=== PATIENT | male | born 1970 | race Caucasian/White ===

== ENCOUNTER 2018-11-17 14:46 | Emergency (ER) | payer MEDICAID, OTHER ==
[2018-11-17] MEDS ORDERED: Lidocaine 1% with EPINEPHrine 1:100,000 50 ML MDV INFILT ONE (14:51)
--- NOTE | 2018-11-17 15:02 | EDM.PDOC ---
ED HPI GENERAL MEDICAL PROBLEM - General Chief Complaint: Laceration Stated Complaint: FELL AND HIT HEAD Time Seen by Provider: 11/17/18 15:00 Source of Information: Reports: Patient, Family History Limitations: Reports: No Limitations - History of Present Illness INITIAL COMMENTS - FREE TEXT/NARRATIVE: 48-year-old male fell off a ladder hurting his lower left leg and striking the front of his head on the corner of a brick sustaining a scalp laceration. He also has an abrasion and some lower leg pain on the left side but is able to ambulate. He is developing a worsening headache. Denies any neck pain, upper extremity pain, chest pain or abdominal pain. Onset: Sudden Duration: Hour(s): (Within the last hour) headache Pain Score (Numeric/FACES): 10 - Related Data Allergies Allergy/AdvReac Type Severity Reaction Status Date / Time No Known Allergies Allergy Verified 11/17/18 14:59 Home Meds: Home Meds Hydrocodone/Acetaminophen [Hydrocodon-Acetaminophn 10-325] 2 tab PO BID PRN 10/17 [History] Amitriptyline [Elavil] 50 mg PO BEDTIME 06/07/17 [History] Aspirin 325 mg PO DAILY 06/07/17 [History] Cyclobenzaprine [Flexeril] 10 mg PO TID PRN 06/07/17 [History] Docusate Sodium [Colace] 100 mg PO DAILY 06/07/17 [History] Insulin Glarg,Human.Rec.Analog [Lantus] 25 unit SUBCUT BEDTIME 06/07/17 [History ] Lisinopril 40 mg PO DAILY 06/07/17 [History] Metoprolol Tartrate [Lopressor] 100 mg PO BID 06/07/17 [History] Naproxen [Naprosyn] 500 mg PO BID 06/07/17 [History] Pregabalin [Lyrica] 100 mg PO TID 06/07/17 [History] Scopolamine [Transderm-Scop] 1 each TD ASDIRECTED 06/07/17 [History] Simvastatin [Zocor] 10 mg PO BEDTIME 06/07/17 [History] Triamcinolone Acetonide [Kenalog 0.1% Crm] 1 applic TOP BID 06/07/17 [History] amLODIPine [Norvasc] 10 mg PO DAILY 06/07/17 [History] glipiZIDE [Glucotrol] 5 mg PO BIDAC 06/07/17 [History] metFORMIN [Glucophage] 1,000 mg PO BIDMEALS 06/07/17 [History] ED ROS GENERAL - Review of Systems Review Of Systems: See Below Constitutional: Denies: Fever, Chills HEENT: Denies: Vision Change Respiratory: Denies: Shortness of Breath Cardiovascular: Denies: Chest Pain GI/Abdominal: Denies: Abdominal Pain, Nausea, Vomiting : Reports: No Symptoms Musculoskeletal: Reports: Leg Pain (Left lower pain, also left upper arm pain around the elbow.) Skin: Reports: Other (Laceration on the high forehead, abrasion on the left elbow and left lower leg) Neurological: Reports: Headache, Paresthesia (Chronic lower extremity paresthesias), Other (No loss of consciousness) Psychiatric: Reports: No Symptoms ED EXAM, SKIN/RASH Exam: See Below Exam Limited By: No Limitations General Appearance: Alert, No Apparent Distress Eye Exam: Bilateral Eye: Normal Inspection Head: Other (8 cm irregular laceration on the upper forehead extending to the hairline on the frontal scalp) Neck: Non-Tender Respiratory/Chest: No Respiratory Distress, Lungs Clear Cardiovascular: Regular Rate, Rhythm GI/Abdominal: Non-Tender Extremities: Other (Patient has a few superficial abrasion on the left lower leg with tenderness to palpation of the fibula but no deformity and able to bear weight. Also some tenderness to palpation over the medial malleolus and top of the foot.) Neurological: Alert, Oriented, No Motor/Sensory Deficits Skin: Other (Laceration on the scalp and abrasions as above) Course - Vital Signs Last Recorded V/S: Last Vital Signs Temp 98.2 F 11/17/18 15:08 Pulse 79 11/17/18 15:08 Resp 24 H 11/17/18 15:08 BP 178/92 H 11/17/18 15:08 Pulse Ox 94 L 11/17/18 15:08 - Orders/Labs/Meds Orders: Active Orders 24 hr Category Date Time Status Vaccines to be Administered [RC] PER UNIT ROUTINE Care 11/17/18 16:03 Active DME for Discharge [COMM] Stat Oth 11/17/18 17:44 Ordered DME for Discharge [COMM] Stat Oth 11/18/18 09:28 Ordered Meds: Medications Discontinued Medications Generic Name Dose Route Start Last Admin Trade Name Todd PRN Reason Stop Dose Admin Acetaminophen 1,000 mg 11/17/18 15:06 11/17/18 15:11 Tylenol Extra Strength PO 11/17/18 15:07 1,000 mg ONETIME ONE Administration Bacitracin 1 dose 11/17/18 16:18 11/17/18 16:28 Bacitracin Oint 1 Gm TOP 11/17/18 16:19 1 dose ONETIME ONE Administration Diphtheria/Tetanus/Acell Pertussis 0.5 ml 11/17/18 16:03 11/17/18 16:27 Adacel IM 11/17/18 16:04 0.5 ml .ONCE ONE Administration Lidocaine/Epinephrine 30 ml 11/17/18 14:51 11/17/18 15:10 Xylocaine 1% With Epinephrine 1:100,000 INFILT 11/17/18 14:52 30 ml ONETIME ONE Administration - Re-Assessments/Exams Free Text/Narrative Re-Assessment/Exam: 11/17/18 16:13 Pressure was applied to the wound and the patient had a CT of the head to rule out subdural or any other urgent abnormality needing treatment prior to repair of the laceration. This was negative. The laceration was then infiltrated with 1 % lidocaine with epinephrine, washed with saline, and closed first using 6 5-0 Vicryl sutures for subcutaneous closure, and then an 8 cm interlocking running suture to close the external laceration. A pressure dressing was applied, the patient was provided with a TD Booster and an x-ray of the left tib-fib obtained. 11/17/18 16:25 Tib-fib x-ray showed arthritic changes and possible distal medial malleolar fx. Patient has no significant pain over the medial area but neuropathy may be masking pain. A walking boot will be supplied until rechecked with orthopedics. Crutches will assist with ambulation. Topical bacitracin and a pressure dressing was applied to the scalp wound, sutures can be removed in 9 days. This would be Monday the . He can increase activity as tolerated. Continue current medications. Patient has previous physician relationship with Dr. Enciso, podiatry so I will have him see him this week in follow-up. Departure - Departure Time of Disposition: 16:58 Disposition: Home, Self-Care 01 Clinical Impression: Laceration of scalp Qualifiers: Encounter type: initial encounter Qualified Code(s): S01.01XA - Laceration without foreign body of scalp, initial encounter Leg abrasion Qualifiers: Encounter type: initial encounter Laterality: left Qualified Code(s): S80.812A - Abrasion, left lower leg, initial encounter Elbow abrasion Qualifiers: Encounter type: initial encounter Laterality: left Qualified Code(s): S50.312A - Abrasion of left elbow, initial encounter Fractured medial malleolus Qualifiers: Encounter type: initial encounter Fracture type: closed Fracture alignment: displaced Laterality: left Qualified Code(s): S82.52XA - Displaced fracture of medial malleolus of left tibia, initial encounter for closed fracture - Discharge Information Instructions: Laceration Care, Adult Referrals: PCP,None [Primary Care Provider] - Forms: ED Department Discharge Care Plan Goals: Keep wound covered and clean while healing. Increase diet and activity as tolerated. Keep other wounds clean as well. Return if concerns of infection or not healing satisfactorily, otherwise stitches can be removed in 9 days on November 26. Continue your regular medications. Wear walking boot and use crutches for ambulation until rechecked with podiatry Monday or Monday, call clinic for appointment. - My Orders Last 24 Hours: My Active Orders 11/17/18 16:03 Vaccines to be Administered [RC] PER UNIT ROUTINE 11/17/18 17:44 DME for Discharge [COMM] Stat 11/18/18 09:28 DME for Discharge [COMM] Stat - Assessment/Plan Last 24 Hours: My Active Orders 11/17/18 16:03 Vaccines to be Administered [RC] PER UNIT ROUTINE 11/17/18 17:44 DME for Discharge [COMM] Stat 11/18/18 09:28 DME for Discharge [COMM] Stat
[2018-11-17] MEDS ORDERED: Acetaminophen 500 MG Tab PO ONE (15:06)
--- NOTE | 2018-11-17 15:52 | CRLCT ---
INDICATION: Trauma to head after fall off ladder. Headache. TECHNIQUE: CT Head without contrast. COMPARISON: None FINDINGS: Ventricles and sulci are normal in size and configuration. No extra axial collection. No acute intracranial hemorrhage. No mass effect or edema. No CT evidence of acute, large territorial infarction. Calcification of the anterior falx. Visualized paranasal sinuses and mastoid air cells are well aerated. There is a small left frontal scalp laceration/hematoma. Calvarium is intact. IMPRESSION: 1. No acute intracranial hemorrhage or mass effect. 2. Small left frontal scalp laceration/hematoma. Dictated by Courtney Hale MD @ 11/17/2018 3:51:25 PM Please note that all CT scans at this facility use dose modulation, iterative reconstruction, and/or weight-based dosing when appropriate to reduce radiation dose to as low as reasonably achievable. Dictated by: Courtney Hale MD @ 11/17/2018 15:51:31 (Electronically Signed)
[2018-11-17] MEDS ORDERED: Diphtheria,Pertussis(Acell),Tetanus Vaccine 0.5 ML SDV IM ONE (16:03)
[2018-11-17] MEDS ORDERED: Bacitracin Oint 1 GM U/D Packet TOP ONE (16:18)
--- NOTE | 2018-11-17 16:34 | CRLCR ---
HISTORY: Trauma for fall from a ladder. COMPARISON: None. FINDINGS: Four views of the tibia and fibula. Acute nondisplaced fracture of the distal tibia at the ankle/medial malleolus. There is associated soft tissue swelling about the ankle. Dictated by Nessa Causey MD @ Nov 17 2018 4:30PM Signed by Dr. Nessa Causey @ Nov 17 2018 4:33PM
== END 2018-11-17 16:58 | disposition home or self-care (01) ==
LOC: JP.ED 14:46
DX: S82.52XA Displaced fracture of medial malleolus of left tibia, initial encounter for closed fracture (principal); S01.01XA Laceration without foreign body of scalp, initial encounter; S50.312A Abrasion of left elbow, initial encounter; Z23 Encounter for immunization; Z79.899 Other long term (current) drug therapy; Z79.82 Long term (current) use of aspirin; W11.XXXA Fall on and from ladder, initial encounter
CPT/HCPCS: 12034; 70450; 73590; 90471; 90715; 99283; A9270

== ENCOUNTER 2018-11-19 17:26 | Emergency (ER) | payer MEDICAID ==
--- NOTE | 2018-11-19 17:56 | EDM.PDOC ---
ED HPI GENERAL MEDICAL PROBLEM - General Chief Complaint: Eye Problems Stated Complaint: EYES SWELLING SHUT-FALL 11/17/18 Time Seen by Provider: 11/19/18 17:47 Source of Information: Reports: Patient, Family, Old Records, RN Notes Reviewed History Limitations: Reports: No Limitations - History of Present Illness INITIAL COMMENTS - FREE TEXT/NARRATIVE: 48-year-old gentleman presents emergency department today complaint of swelling around his eyes, he was recently involved in a trauma 2 days prior where he had fallen off a ladder with a head injury CT scan of the head shows no acute fracture or intracranial abnormality however he did have significant facial swelling and laceration. His biggest concern is that he has developed edema and ecchymosis around his eyes and he is concerned that this may be abnormal no difficulty with vision - Related Data Allergies Allergy/AdvReac Type Severity Reaction Status Date / Time No Known Allergies Allergy Verified 11/17/18 14:59 Home Meds: Home Meds Hydrocodone/Acetaminophen [Hydrocodon-Acetaminophn 10-325] 2 tab PO BID PRN 10/17 [History] Amitriptyline [Elavil] 50 mg PO BEDTIME 06/07/17 [History] Aspirin 325 mg PO DAILY 06/07/17 [History] Cyclobenzaprine [Flexeril] 10 mg PO TID PRN 06/07/17 [History] Docusate Sodium [Colace] 100 mg PO DAILY 06/07/17 [History] Insulin Glarg,Human.Rec.Analog [Lantus] 25 unit SUBCUT BEDTIME 06/07/17 [History ] Lisinopril 40 mg PO DAILY 06/07/17 [History] Metoprolol Tartrate [Lopressor] 100 mg PO BID 06/07/17 [History] Naproxen [Naprosyn] 500 mg PO BID 06/07/17 [History] Pregabalin [Lyrica] 100 mg PO TID 06/07/17 [History] Scopolamine [Transderm-Scop] 1 each TD ASDIRECTED 06/07/17 [History] Simvastatin [Zocor] 10 mg PO BEDTIME 06/07/17 [History] Triamcinolone Acetonide [Kenalog 0.1% Crm] 1 applic TOP BID 06/07/17 [History] amLODIPine [Norvasc] 10 mg PO DAILY 06/07/17 [History] glipiZIDE [Glucotrol] 5 mg PO BIDAC 06/07/17 [History] metFORMIN [Glucophage] 1,000 mg PO BIDMEALS 06/07/17 [History] Past Medical History Neurological History: Reports: Neuropathy, Diabetic Endocrine/Metabolic History: Reports: Diabetes, Type II - Infectious Disease History Infectious Disease History: Reports: Chicken Pox - Past Surgical History GI Surgical History: Reports: Appendectomy Social & Family History - Tobacco Use Smoking Status *Q: Never Smoker - Caffeine Use Caffeine Use: Reports: Coffee, Soda, Tea ED ROS GENERAL - Review of Systems Review Of Systems: See Below HEENT: Reports: No Symptoms Skin: Reports: Bruising, Other (Edema) Neurological: Reports: No Symptoms ED EXAM GENERAL W FULL EYE - Physical Exam Exam: See Below Exam Limited By: No Limitations General Appearance: Alert, WD/WN, No Apparent Distress Eye Exam: Bilateral Eye: EOMI, Normal Inspection, Periorbital Changes (Edema and bruising superior aspects of both orbits) Extraocular Movements: Bilateral: Intact Pupillary Size: Bilateral: 5 mm Head: Facial Swelling (Trina), Facial Tenderness Neck: Normal Inspection, Supple, Non-Tender, Full Range of Motion Course - Vital Signs Last Recorded V/S: Last Vital Signs Temp 96.4 F 11/19/18 17:42 Pulse 82 11/19/18 17:42 Resp 16 11/19/18 17:42 BP 202/107 H 11/19/18 17:42 Pulse Ox 96 11/19/18 17:42 Departure - Departure Time of Disposition: 18:04 Disposition: Home, Self-Care 01 Condition: Fair Clinical Impression: Traumatic periorbital ecchymosis Qualifiers: Encounter type: initial encounter Laterality: unspecified laterality Qualified Code(s): S05.10XA - Contusion of eyeball and orbital tissues, unspecified eye, initial encounter - Discharge Information Referrals: Dilan Lowry MD [Primary Care Provider] - Additional Instructions: Please keep your follow-up appointment with podiatry and primary care, call return to the emergency department worsening of symptoms - Assessment/Plan Plan: Assessment Acuity = acute Site and laterality = bilateral periorbital edema and bruising Etiology = secondary to trauma] Manifestations = none] Location of injury = Home Lab values = none] Plan [Mainly reassurance recommend using ice over the edematous areas and then help positioning with head for drainage of the fluid, he does have follow-up appointments with his primary care and podiatry this week This note was dictated using [employer] voice recognition software please call with any questions on syntax or grammar.
== END 2018-11-19 18:07 | disposition home or self-care (01) ==
LOC: JP.ED 17:26
DX: S00.83XA Contusion of other part of head, initial encounter (principal); E11.40 Type 2 diabetes mellitus with diabetic neuropathy, unspecified; Z79.82 Long term (current) use of aspirin; Z79.4 Long term (current) use of insulin; Z79.899 Other long term (current) drug therapy; W11.XXXA Fall on and from ladder, initial encounter
CPT/HCPCS: 99282

== ENCOUNTER 2020-06-04 16:41 | Emergency (ER) | payer MEDICAID ==
[2020-06-04] MEDS ORDERED: Sodium Chloride 0.9% 10 ML Syringe FLUSH PRN (17:12)
[2020-06-04] MEDS ORDERED: Ondansetron 4 MG/2 ML SDV IVPUSH ONE (17:13)
[2020-06-04] MEDS ORDERED: Lactated Ringers 1,000 ML IV SCH (17:15)
--- NOTE | 2020-06-04 17:17 | EDM.PDOC ---
ED HPI GENERAL MEDICAL PROBLEM - General Chief Complaint: Gastrointestinal Problem Stated Complaint: WEAK,NAUSEA, DIAHHREA Time Seen by Provider: 06/04/20 17:08 Source of Information: Reports: Patient, Provider, RN Notes Reviewed History Limitations: Reports: No Limitations - History of Present Illness INITIAL COMMENTS - FREE TEXT/NARRATIVE: 50-year-old gentleman presents to the emergency department sent from clinic I did discuss case with Dr. Lowry states he has been feeling ill for about a week or so did have some nausea and vomiting last week but that has progressed to diarrhea he has had fevers and chills at home feels nauseated received his first Covid vaccine about a month ago he is set to receive the second 1 in about a week he has been doing self-isolation no known exposures that he is aware of. - Related Data Allergies Allergy/AdvReac Type Severity Reaction Status Date / Time No Known Allergies Allergy Verified 06/04/20 16:58 Home Meds: Home Meds Hydrocodone/Acetaminophen [Hydrocodon-Acetaminophn 10-325] 2 tab PO BID PRN 12/11/13 [History] Amitriptyline [Elavil] 50 mg PO BEDTIME 06/07/17 [History] Aspirin 325 mg PO DAILY 06/07/17 [History] Docusate Sodium [Colace] 100 mg PO DAILY 06/07/17 [History] Metoprolol Tartrate [Lopressor] 100 mg PO BID 06/07/17 [History] Naproxen [Naprosyn] 500 mg PO BID 06/07/17 [History] Pregabalin [Lyrica] 100 mg PO TID 06/07/17 [History] Scopolamine [Transderm-Scop] 1 each TD ASDIRECTED 06/07/17 [History] Simvastatin [Zocor] 10 mg PO BEDTIME 06/07/17 [History] Triamcinolone Acetonide [Kenalog 0.1% Crm] 1 applic TOP BID 06/07/17 [History] amLODIPine [Norvasc] 10 mg PO DAILY 06/07/17 [History] glipiZIDE [Glucotrol] 5 mg PO BIDAC 06/07/17 [History] metFORMIN [Glucophage] 1,000 mg PO BIDMEALS 06/07/17 [History] Dulaglutide [Trulicity] 1.5 mg SQ WEEKLY 06/04/20 [History] Empagliflozin [Jardiance] 25 mg PO DAILY 06/04/20 [History] Past Medical History HEENT History: Reports: Impaired Vision Cardiovascular History: Reports: High Cholesterol, Hypertension Gastrointestinal History: Reports: Chronic Constipation Musculoskeletal History: Reports: Back Pain, Chronic Neurological History: Reports: Concussion, Neuropathy, Diabetic Endocrine/Metabolic History: Reports: Diabetes, Type II, Obesity/BMI 30+ - Infectious Disease History Infectious Disease History: Reports: Chicken Pox - Past Surgical History Head Surgeries/Procedures: Reports: None HEENT Surgical History: Reports: None Cardiovascular Surgical History: Reports: None GI Surgical History: Reports: Appendectomy Endocrine Surgical History: Reports: None Neurological Surgical History: Reports: None Musculoskeletal Surgical History: Reports: None Dermatological Surgical History: Reports: None Social & Family History - Tobacco Use Tobacco Use Status *Q: Never Tobacco User Second Hand Smoke Exposure: No - Caffeine Use Caffeine Use: Reports: Coffee, Soda - Recreational Drug Use Recreational Drug Use: Yes Drug Use in Last 12 Months: Yes Recreational Drug Type: Reports: Marijuana/Hashish Recreational Drug Use Frequency: Weekly ED ROS GENERAL - Review of Systems Review Of Systems: See Below Constitutional: Reports: Fever, Chills, Weakness, Fatigue, Other (Body aches) HEENT: Reports: No Symptoms Respiratory: Reports: No Symptoms Cardiovascular: Reports: No Symptoms GI/Abdominal: Reports: Diarrhea, Nausea, Vomiting : Reports: No Symptoms Neurological: Reports: No Symptoms ED EXAM, GENERAL - Physical Exam Exam: See Below Exam Limited By: No Limitations General Appearance: Alert, WD/WN, No Apparent Distress Respiratory/Chest: No Respiratory Distress, Lungs Clear, Normal Breath Sounds, No Accessory Muscle Use, Chest Non-Tender Cardiovascular: Regular Rate, Rhythm, No Murmur GI/Abdominal: Soft, Non-Tender Extremities: No Pedal Edema Course - Vital Signs Last Recorded V/S: Last Vital Signs Temp 96.4 F L 06/04/20 17:03 Pulse 79 06/04/20 17:03 Resp 18 06/04/20 17:03 BP 143/94 H 06/04/20 17:03 Pulse Ox 97 06/04/20 17:03 - Orders/Labs/Meds Orders: Active Orders 24 hr Category Date Time Status Peripheral IV Care [RC] . DIRECTED Care 06/04/20 17:12 Active PROCALCITONIN [CHEM] Urgent Lab 06/04/20 17:28 Received Lactated Ringers [Ringers, Lactated] 1,000 ml Med 06/04/20 17:15 Active IV ASDIRECTED Sodium Chloride 0.9% [Saline Flush] Med 06/04/20 17:12 Active 10 ml FLUSH ASDIRECTED PRN Peripheral IV Insertion Adult [OM.PC] Urgent Oth 06/04/20 17:12 Ordered Medication Orders Lactated Ringer's (Ringers, Lactated) 1,000 mls @ 999 mls/hr IV ASDIRECTED LAKSHMI Last Admin: 06/04/20 17:24 Dose: 999 mls/hr Documented by: SOFIYA Sodium Chloride (Sodium Chloride 0.9% 10 Ml Syringe) 10 ml FLUSH ASDIRECTED PRN PRN Reason: Keep Vein Open Last Admin: 06/04/20 17:24 Dose: 10 ml Documented by: SOFIYA Labs: Laboratory Tests 06/04/20 06/04/20 06/04/20 Range/Units 17:13 17:28 17:28 Sodium 143 (140-148) mmol/L Potassium 3.5 L (3.6-5.2) mmol/L Chloride 103 (100-108) mmol/L Carbon Dioxide 23 (21-32) mmol/L Anion Gap 20.5 H (5.0-14.0) mmol/L BUN 35 H (7-18) mg/dL Creatinine 1.5 H (0.8-1.3) mg/dL Est Cr Clr Drug Dosing 60.83 mL/min Estimated GFR (MDRD) 50 L (>60) Glucose 113 H (74-106) mg/dL Lactic Acid 1.8 (0.4-2.0) mmol/L Calcium 8.8 (8.5-10.1) mg/dL Total Bilirubin 0.4 (0.2-1.0) mg/dL AST 20 (15-37) U/L ALT 40 (12-78) U/L Alkaline Phosphatase 77 (46-116) U/L Troponin I < 0.017 (0.000-0.056) ng/mL C-Reactive Protein (0.0-0.3) mg/dL Total Protein 7.3 (6.4-8.2) g/dL Albumin 3.8 (3.4-5.0) g/dL Globulin 3.5 (2.3-3.5) g/dL Albumin/Globulin Ratio 1.1 L (1.2-2.2) Lipase 140 (73-393) U/L Influenza Type A RNA Negative (NEGATIVE) RSV RNA (INAAT) Negative (NEGATIVE) Influenza Type B RNA Negative (NEGATIVE) SARS-CoV-2 RNA (ROXANN) Negative (NEGATIVE) 06/04/20 Range/Units 17:28 Sodium (140-148) mmol/L Potassium (3.6-5.2) mmol/L Chloride (100-108) mmol/L Carbon Dioxide (21-32) mmol/L Anion Gap (5.0-14.0) mmol/L BUN (7-18) mg/dL Creatinine (0.8-1.3) mg/dL Est Cr Clr Drug Dosing mL/min Estimated GFR (MDRD) (>60) Glucose (74-106) mg/dL Lactic Acid (0.4-2.0) mmol/L Calcium (8.5-10.1) mg/dL Total Bilirubin (0.2-1.0) mg/dL AST (15-37) U/L ALT (12-78) U/L Alkaline Phosphatase (46-116) U/L Troponin I (0.000-0.056) ng/mL C-Reactive Protein 3.10 H (0.0-0.3) mg/dL Total Protein (6.4-8.2) g/dL Albumin (3.4-5.0) g/dL Globulin (2.3-3.5) g/dL Albumin/Globulin Ratio (1.2-2.2) Lipase (73-393) U/L Influenza Type A RNA (NEGATIVE) RSV RNA (INAAT) (NEGATIVE) Influenza Type B RNA (NEGATIVE) SARS-CoV-2 RNA (ROXANN) (NEGATIVE) Meds: Medications Generic Name Dose Route Start Last Admin Trade Name Freq PRN Reason Stop Dose Admin Lactated Ringer's 1,000 mls @ 999 mls/hr 06/04/20 17:15 06/04/20 17:24 Ringers, Lactated IV 999 mls/hr ASDIRECTED LAKSHMI Administration Sodium Chloride 10 ml 06/04/20 17:12 06/04/20 17:24 Sodium Chloride 0.9% 10 Ml Syringe FLUSH 10 ml ASDIRECTED PRN Administration Keep Vein Open Discontinued Medications Generic Name Dose Route Start Last Admin Trade Name Freq PRN Reason Stop Dose Admin Ondansetron HCl 4 mg 06/04/20 17:13 06/04/20 17:31 Ondansetron 4 Mg/2 Ml Sdv IVPUSH 06/04/20 17:14 4 mg ONETIME ONE Administration Departure - Departure Time of Disposition: 18:35 Disposition: Home, Self-Care 01 Condition: Fair Clinical Impression: Gastroenteritis - Discharge Information Instructions: Viral Gastroenteritis, Adult, [id number] Referrals: Dilan Lowry MD [Primary Care Provider] - Forms: ED Department Discharge Additional Instructions: Continue to push fluids, please followup with your primary care provider in 2-3 days if not better, please call return to the emergency department with worsening of symptoms. Sepsis Event Note (ED) - Evaluation Sepsis Screening Result: No Definite Risk - Focused Exam Vital Signs: Vital Signs Temp Pulse Resp BP Pulse Ox 06/04/20 17:03 96.4 F L 79 18 143/94 H 97 06/04/20 16:59 96.4 F L 79 18 143/94 H 97 - My Orders Last 24 Hours: My Active Orders 06/04/20 17:12 Peripheral IV Care [RC] . DIRECTED Sodium Chloride 0.9% [Saline Flush] 10 ml FLUSH ASDIRECTED PRN Peripheral IV Insertion Adult [OM.PC] Urgent 06/04/20 17:15 Lactated Ringers [Ringers, Lactated] 1,000 ml IV ASDIRECTED 06/04/20 17:28 PROCALCITONIN [CHEM] Urgent - Assessment/Plan Last 24 Hours: My Active Orders 06/04/20 17:12 Peripheral IV Care [RC] . DIRECTED Sodium Chloride 0.9% [Saline Flush] 10 ml FLUSH ASDIRECTED PRN Peripheral IV Insertion Adult [OM.PC] Urgent 06/04/20 17:15 Lactated Ringers [Ringers, Lactated] 1,000 ml IV ASDIRECTED 06/04/20 17:28 PROCALCITONIN [CHEM] Urgent Plan: Assessment Acuity = acute Site and laterality = gastroenteritis Etiology = unknown Manifestations = diarrhea Location of injury = Home Lab values = creatinine elevated 1.5 consistent with acute renal failure stage G3 a CRP slightly elevated 1.3 Covid was negative Plan I did review lab work with him he received 1 L fluids in the ED as well as 4 mg of Zofran he states he does feel better I offered him some medication he declined offered stool sample he also declined he will follow-up with his primary care in the next 2 to 3 days if not This note was dictated using [employer] voice recognition software please call with any questions on syntax or grammar.
[2020-06-04 18:15] LABS: CORONAVIRUS COVID-19 NAA NEGATIVE (NEGATIVE)
== END 2020-06-04 18:46 | disposition home or self-care (01) ==
LOC: JP.ED 16:41
DX: K52.9 Noninfective gastroenteritis and colitis, unspecified (principal); I10 Essential (primary) hypertension; E78.00 Pure hypercholesterolemia, unspecified; E66.9 Obesity, unspecified; E11.40 Type 2 diabetes mellitus with diabetic neuropathy, unspecified; Z20.822 Contact with and (suspected) exposure to COVID-19; Z79.82 Long term (current) use of aspirin; Z79.84 Long term (current) use of oral hypoglycemic drugs; Z79.899 Other long term (current) drug therapy
CPT/HCPCS: 0241U; 36415; 80053; 83605; 83690; 84145; 84484; 86140; 96374; 99282; 99284-25; J2405; J7120

== ENCOUNTER 2023-03-10 11:23 | Emergency (ER) | payer MEDICAID, OTHER ==
[2023-03-10] MEDS ORDERED: Bacitracin Oint 1 GM U/D Packet TOP ONE (11:56)
== END 2023-03-10 13:03 | disposition home or self-care (01) ==
LOC: JP.ED 11:23
DX: S80.819A Abrasion, unspecified lower leg, initial encounter (principal); I10 Essential (primary) hypertension; E78.00 Pure hypercholesterolemia, unspecified; E11.9 Type 2 diabetes mellitus without complications; E66.9 Obesity, unspecified; Z68.38 Body mass index [BMI] 38.0-38.9, adult; Z79.84 Long term (current) use of oral hypoglycemic drugs; Z79.4 Long term (current) use of insulin; Z79.82 Long term (current) use of aspirin; W00.0XXA Fall on same level due to ice and snow, initial encounter
CPT/HCPCS: 70450; 70450-26; 72125; 72125-26; 76377; 99284

== ENCOUNTER 2023-09-01 07:13 | Day surgery (SDC) | payer MEDICAID, OTHER ==
[2023-09-01] MEDS ORDERED: fentaNYL 50 MCG/ML SDV ONE (07:39)
[2023-09-01] MEDS ORDERED: Midazolam 1 MG/ML 2 ML SDV ONE (07:39)
[2023-09-01] MEDS ORDERED: Propofol 200 MG/20 ML SDV ONE ×2 (07:39→08:32)
[2023-09-01] MEDS: Lactated Ringers 1,000 ML IV SCH (07:55)
== END 2023-09-01 09:30 | disposition home or self-care (01) ==
LOC: JP.SDS 07:13
PROVIDERS: ATTEND Surgery
DX: Z12.11 Encounter for screening for malignant neoplasm of colon (principal); I10 Essential (primary) hypertension; Z88.8 Allergy status to other drugs, medicaments and biological substances
CPT/HCPCS: G0121; J2250; J2704; J3010; J7120